=== PATIENT | male | born 1970 | race Caucasian/White ===

== ENCOUNTER 2021-01-30 09:28 | Observation (INO) | payer BC, SELFPAY ==
[2021-01-30] VITALS (19 sets, daily range): BP systolic 128–154; BP diastolic 84–112; PULSE 77–96; RESP 11–24; TEMP 36.2–37.2; O2SAT 95–98; BMI 40.4
--- NOTE | ~2021-01-30 | XR_ITS ---
EXAMINATION: XR chest 2V DATE: 01/30/2021 10:27 INDICATION: Left chest pressure. TECHNIQUE: Frontal and lateral views of the chest were obtained. COMPARISON: None. FINDINGS: There is mild atelectasis in left lower lung zone. No pleural effusion or pneumothorax. The heart size is normal. IMPRESSION: 1. Mild atelectasis in left lower lung zone. Reviewed, dictated and finalized at location B.
--- NOTE | ~2021-01-30 | NM_ITS ---
EXAMINATION: NM jacqui stress w perfusion DATE: 01/31/2021 12:53 INDICATION: Unstable angina. TECHNIQUE: Rest images were obtained following intravenous administration of 9.7 mCi Tc99m tetrofosmi n (Myoview). The patient was infused intravenously with Lexiscan (regadenoson). Then, 29.8 mCi Tc99m tetrofosmin (Myoview) was administered intravenously, and stress images were obtained. Data was recon structed into short axis and horizontal and vertical long axis SPECT images. Gated SPECT images were also obtained. COMPARISON: None. FINDINGS: There is no definite reversible or fixed perfusion abnormality to suggest ischemia or infar ction. There is no segmental wall motion abnormality. Left ventricular ejection fraction measures 5 9%. IMPRESSION: 1. No definite ischemia or infarct. 2. Normal left ventricular ejection fraction measuring 59%. Reviewed, dictated and finalized at location B.
--- NOTE | 2021-01-30 09:33 | ECG_ITS ---
Measurements Intervals [place] Rate: 93 P: 68 [place]: 168 QRS: -10 QRSD: 130 T: 30 QT: 335 QTc: 418 Interpretive Statements SINUS RHYTHM INCOMPLETE RIGHT BUNDLE BRANCH BLOCK BASELINE ARTIFACT- I, II, III, AVR, AVL, AVF, V1-V6 BORDERLINE ECG Electronically Signed On 01-30-2021 9:48:18 CDT by Willy Garcia D.O.
[2021-01-30] MEDS: ASPIRIN 81 MG CHEWABLE TABLET 324 MG PO (09:49)
[2021-01-30 09:52] LABS: Basophils Percent Auto 0.6 % (0.2-1.2); Eosinophils Absolute Auto 0.1 K/mm3 (0-0.3); Eosinophils Percent Auto 2.1 % (0-4.4); Hematocrit 42.3 % (42.0-52.0); Hemoglobin 14.3 g/dL (14.0-18.0); Immature Granulocyte Absolute 0.04 K/mm3 (0.00-0.031); Immature Granulocyte Percent A 0.6 % (0-0.5); Lymphocytes Absolute Auto 1.91 K/mm3 (0.9-3.2); Lymphocytes Percent Auto 28.1 % (18.3-44.2); Mean Corpuscular HGB Conc 33.8 g/dl (32-36); Mean Corpuscular Hemoglobin 30.8 pg (26-34); Mean Corpuscular Volume 91.2 fl (80-100); Mean Platelet Volume 11.1 fl (7.4-10.4); Monocytes Absolute Auto 0.6 K/mm3 (0.1-0.6); Monocytes Percent Auto 8.2 % (2.6-8.5); Neutrophils Absolute Auto 4.1 K/mm3 (1.3-6.7); Neutrophils Percent Auto 60.4 % (45.5-73.1); Platelet Count Result 214 k/mm3 (150-375); Red Blood Count 4.64 M/mm3 (4.6-6.20); Red Cell Distribution Width 12.5 % (11.5-14.5); White Blood Count 6.8 K/mm3 (4.5-10.0)
--- NOTE | 2021-01-30 09:52 | ED.CHESTPAIN ---
HPI - Chest Pain General Chief Complaint: Chest Pain Stated Complaint: chest pain Time Seen by Provider: 01/30/21 09:52 Source: patient and family Mode of arrival: ambulatory Limitations: no limitations History of Present Illness HPI narrative: Patient is a 50-year-old male who presents for evaluation of intermittent chest pain. At the time of assessment, patient is chest pain-free. Patient states that over the past 72 hours he has had increased chest pain as well as shortness of breath and diaphoresis with exertion. Patient states he initially attributed his pain to acid reflux as he has been taking [id number] medication for chest pain with a burning sensation. Patient states that at times the pain does radiate to his left shoulder. Patient denies fever or chills. He is vaccinated for Covid. No history of Covid. He is ambulatory and has no history of coagulopathy or recent surgeries. 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 Patient has not been seen by primary care provider in numerous years. He has never been diagnosed with hypertension or hyperlipidemia, but states he often eats at [employer] on a daily basis and his blood pressure is elevated here. He does not smoke. His father had a myocardial infarction at a young age. Related Data Allergies Allergy/AdvReac Type Severity Reaction Status Date / Time No Known Allergies Allergy Mild Verified 01/30/21 09:53 Review of Systems Review of Systems: CONSTITUTIONAL: Denies fever, chills, or sweats. EYES: Denies visual changes, redness, or discharge. ENT: Denies rhinorrhea, congestion, sore throat, or otalgia. CARDIOVASCULAR: Denies current chest pain, palpitations, or edema. RESPIRATORY: Denies cough or dyspnea. GASTROINTESTINAL: Denies abdominal pain, nausea, vomiting, or diarrhea. GENITOURINARY: Denies dysuria or hematuria. SKIN: Denies rash or itching. MUSCULOSKELETAL: Denies back pain, joint pain, or myalgia. NEUROLOGIC: Denies headache, numbness, or weakness. [facility] Past Medical History Medical History Depression Morbid obesity with BMI of 40.0-44.9, adult Family History Family History Father Family history of cardiovascular disease Social History Social History Smoking status: Never smoker Alcohol intake: current Gender identity (if verbalized by the patient): Male Exam Narrative: GENERAL: Awake, alert, conversant HEAD: Normocephalic, atraumatic. EYES: PERRLA and EOMI. ENT: Nares clear, no rhinorrhea or epistaxis. Mucous membranes moist. NECK: Supple. CHEST: No respiratory distress, breathing even and non labored HEART: Regular rate, sinus rhythm ABDOMEN:Non distended, non tender EXTREMITIES: Normal range of motion. No edema. SKIN: Warm, dry, no rash. NEURO:No focal deficits. Alert and oriented x3 Course Vital Signs Vital signs: Vital Signs Temperature 37.2 C 01/30/21 09:33 Pulse Rate 87 01/30/21 09:33 Respiratory Rate 20 01/30/21 09:33 Blood Pressure 154/112 H 01/30/21 09:33 Pulse Oximetry 98 01/30/21 09:33 Temperature 37.2 C 01/30/21 09:33 Pulse Rate 85 01/30/21 10:36 Respiratory Rate 16 01/30/21 10:36 Blood Pressure 134/87 01/30/21 10:36 Pulse Oximetry 97 01/30/21 10:36 MDM - Chest Pain MDM Narrative Medical decision making narrative: Patient presenting for evaluation of chest pain that is resolved at the time of assessment. Patient with some high risk features including nausea, diaphoresis and shortness of breath associated with the pain. All this is resolved at the time of my assessment. Is mildly hypertensive. No reproducible pain on exam. Patient given aspirin in the ER. Laboratory results are reassuring. Troponin is not
[2021-01-30 10:08] LABS: INR 0.8; Prothrombin Time 11.4 Seconds (11.1-14.7)
[2021-01-30 10:09] LABS: Partial Thromboplastin Time 27.7 SECONDS (22.3-36.8)
[2021-01-30 10:32] LABS: Anion Gap 6 mmol/L (8-16); Blood Urea Nitrogen 15 mg/dL (9-20); Carbon Dioxide 26 mmol/L (22-30); Chloride 107 mmol/L (98-107); Estimated Glomerular Filt Rate > 60; Glucose 100 mg/dL (65-110); Potassium 4.4 mmol/L (3.4-5.0); Sodium 139 mmol/L (137-145)
[2021-01-30 10:43] LABS: Troponin I < 0.012 ng/mL (0.000-0.034)
[2021-01-30 12:28] LABS: Cholesterol 245 mg/dL (0-200); HDL Direct 32 mg/dL; Triglycerides 250 mg/dL (<150)
[2021-01-30 12:39] LABS: LDL Cholesterol Direct 151 mg/dL
--- NOTE | 2021-01-30 12:50 | PM.IMHP ---
H&P: HPI History of Present Illness Date/Time: 01/30/21 12:50 Chief Complaint: Chest discomfort Narrative: Mr. Reji Francis is a 50-year-old male who has been previously healthy admitted to the emergency room today for evaluation of chest discomfort. Mr. 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 He has become worn out and tired. He has had heartburn for his entire life but it has increased in the last few days. This comes and goes, primarily at work but sometimes at home, not particularly exertional. This morning he had some around 630 and took 2 Tums which helped and went to work. Around 830 he had a more intense episode of chest left-sided chest tightness associated with diaphoresis and dizziness. There is no shortness of breath. He came to the emergency room and it gradually resolved on its own. He has been pain-free since admission. His 1st troponin was negative. There is no history of any hypertension or diabetes. Cholesterol status is unknown. He is a nonsmoker. His father had CAD nd stent in his 60s. 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 Used to see Dr. Ibarra, now sees his PA. Review of Systems Constitutional: Constitutional: Reports difficulty sleeping (Has difficulty sleeping when he is not in his own bed.) and Reports fatigue Eyes: Eyes: Reports blurry vision (Had double vision for while after his aneurysm surgery) ENT: Denies epistaxis and Denies nasal congestion Cardiovascular: Cardiovascular: Reports chest pain, Reports diaphoresis, Denies pedal edema, Denies leg edema and Reports lightheadedness Respiratory: Respiratory: Denies dyspnea and Denies dyspnea on exertion Gastrointestinal: Gastrointestinal: Denies abdominal pain and Reports heartburn (Heartburn his entire life) Genitourinary: Genitourinary: Denies hematuria and Denies dysuria Musculoskeletal: Musculoskeletal: 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) and Reports stiffness Integumentary/Breasts: Skin/Breast: Denies rash Neurologic: Denies confusion Psychiatric: Psychiatric: Reports anxiety, Denies behavioral changes and Reports depression PMFSH Past Medical History Medical History (Updated 01/30/21 @ 13:17 by Tg Browne MD) Anxiety Depression Diverticulitis Morbid obesity with BMI of 40.0-44.9, adult Surgical History Surgical History (Updated 01/30/21 @ 13:18 by Tg Browne MD) History of carpal tunnel surgery of right wrist S/P cerebral aneurysm repair Clipped when he was 21 years old Family History Family History (Updated 01/30/21 @ 13:19 by Tg Browne MD) Father Heart disease CAD, coronary stent when he was in his 60s Mother Liver cancer Sibling Diabetes mellitus Social History Social History (Updated 01/30/21 @ 13:20 by Tg Browne MD) Social History: twice, 3 children, 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 Smoking status: Never smoker Alcohol intake: current Alcohol use details: Social drinking, twice weekly Substance use: never Substance use type: does not use Gender identity (if verbalized by the patient): Male Spiritual care concerns: No Meds Home Medications and Allergies Home Medications Medication Instructions Recorded Confirmed Type venlafaxine 100 mg tablet 100 mg PO DAILY #90 tablet 06/20/20 06/20/20 Rx Allergies Allergy/AdvReac Type Severity Reaction Status Date / Time No Known Allergies Allergy Mild Verified 01/30/21 09:53 Vital Signs Vital Signs - 24 hr 01/30/21 09:33 01/30/21 09:45 01/30/21 09:52 Temperature 98.9 F Pulse Rate 87 90 89 Respiratory Rate 20 16 Blood Pressure 154/112
--- NOTE | 2021-01-30 13:19 | ADMGEN ---
This patient, Nirmal Francis, was admitted to IMU Room 205-01. Patient/family oriented to hospital policies and general routines including ID bracelet, bed and alarms, visiting hours, pain management, procedures, bathroom and other care routines, personal items, smoking policy, room service/diet, and visiting hours. Information on how to activate the Rapid Response Team has been discussed. Patient/Family are encouraged to report perceived risks to care and to ask questions if they do not understand what they are told or what they should do.
[2021-01-30 13:39] LABS: Troponin I < 0.012 ng/mL (0.000-0.034)
[2021-01-30] MEDS: PANTOPRAZOLE 40 MG TABLET PO (15:28)
[2021-01-30 17:20] LABS: Troponin I < 0.012 ng/mL (0.000-0.034)
[2021-01-30] MEDS: ZOLPIDEM TARTRATE (*CRX) 5 MG TABLET PO (21:11)
[2021-01-30] MEDS: LORazepam (*CRX) 0.5 MG TABLET PO (21:11)
[2021-01-31] VITALS (9 sets, daily range): BP systolic 109–126; BP diastolic 64–76; PULSE 66–104; RESP 16–18; TEMP 36.3–36.4; O2SAT 95–98
--- NOTE | 2021-01-31 | EST_ITS ---
Patient Info Name: Nirmal Francis Age: 50 years : 1970 Gender: Male Ht: 70 in Wt: 282 lbs BSA: 2.57 m2 HR: 89 bpm BP: 127 / 86 mmHg Heart Rhythm: Sinus Rhythm Exam Date: 01/31/2021 11:44 AM Exam Location: [facility] Stress Patient Status: Inpatient Admit Date: 01/30/2021 Staff Ordering Physician: Tg Browne MD Attending Provider: Tg Browne MD Exercise Technologist: Akila Salinas CT Exercise Physician: Carlos Garcia MD Exam Type: CA stress jacqui w NM Study Info A regadenoson stress test was performed. Summary 1. No abnormal ST/T wave changes with Lexiscan. 2. No arrhythmias were observed during the examination. 3. Please correlate with nuclear medicine images, reported separately. 4. No chest discomfort with stress test. Protocol: Lexiscan Stress ECG Details Stage: REST Duration (min): 0 min : 53 sec HR (bpm): 88 SBP (mmHg): 127 DBP (mmHg): 86 Stage: REST Duration (min): 18 min : 15 sec HR (bpm): 93 SBP (mmHg): 127 DBP (mmHg): 86 Stage: STAGE 1 Duration (min): 0 min : 59 sec HR (bpm): 117 SBP (mmHg): 148 DBP (mmHg): 82 Stage: RECOVERY Duration (min): 1 min : 0 sec HR (bpm): 117 SBP (mmHg): 148 DBP (mmHg): 82 Stage: RECOVERY Duration (min): 2 min : 0 sec HR (bpm): 109 SBP (mmHg): 148 DBP (mmHg): 82 Stage: RECOVERY Duration (min): 3 min : 0 sec HR (bpm): 110 SBP (mmHg): 134 DBP (mmHg): 84 Stage: RECOVERY Duration (min): 4 min : 0 sec HR (bpm): 107 SBP (mmHg): 134 DBP (mmHg): 84 Stage: RECOVERY Duration (min): 5 min : 0 sec HR (bpm): 105 SBP (mmHg): 124 DBP (mmHg): 86 Stage: RECOVERY Duration (min): 5 min : 28 sec HR (bpm): 104 SBP (mmHg): 124 DBP (mmHg): 86 Rest HR: 93 bpm Peak HR: 121 bpm Rest Sys BP: 127 mmHg Peak Sys BP: 148 mmHg Max Pred HR: 170 bpm % Max Pred HR: 71 % Target HR: 145 bpm Max RPP: 17,908 bpm*mmHg BP Response: Normal blood pressure response Termination Reason: Completed protocol Cardiac Symptoms: None Total Time: 1 min : 0 sec Rest Hester BP: 86 mmHg Peak Hester BP: 82 mmHg Total Dose: 0.4 mg Resting ECG Right bundle branch block. Normal sinus rhythm. Stress ECG No abnormal ST/T wave changes with Lexiscan. Arrhythmias No arrhythmias were observed during the examination. Report Signatures
--- NOTE | 2021-01-31 14:53 | PM.DS ---
DS: Admitting Diagnosis Admitting Diagnosis chest pain DS: Discharge Diagnosis Discharge Diagnosis (1) Chest discomfort: Code(s): R07.89 - Other chest pain Status: Acute Assessment and Plan: Chest discomfort that comes and goes and is not exertional. Has been under a lot of stress at work over the past several weeks which he thinks may be contributing to his symptoms. He underwent a lexiscan stress test today which did not show any evidence of ischemia or infarct. EF 59%. Feeling well today, no chest pain. Stable for discharge home with follow up as an outpatient with Dr. Browne. DS: Summary Hospital Course Reason for hospitalization: Chest pain Hospital Course: Presented to the ED with complaints of chest discomfort. EKG did not have evidence of ischemia. Serial troponins negative. Underwent lexiscan stress test today which was negative. Placed on a statin as lipid panel drawn here showed elevated LDL, TC. No longer having chest pain. He will be discharged home today with outpatient follow up scheduled. Time Spent with Patient Time attestation: Total time spent providing and/or coordinating discharge services: Time spent: Greater than 30 minutes Exam Const: General: no acute distress and uncomfortable; No confusion Orientation/consciousness: No confusion Other: Patient appears a bit anxious and uncomfortable being here. Does not like to sit still he says. HENMT: General nose exam: no epistaxis Mouth: Yes moist mucous membranes Eyes: EOM: EOMs intact bilaterally Neck: Neck: supple and no JVD Thyroid: thyroid normal Carotids: no bruits Lymphatic: lymphadenopathy not noted Resp: Effort & Inspection: normal respiratory effort Auscultation: clear to auscultation bilaterally Cardio: Rate: regular rate Rhythm: regular rhythm Heart sounds: no gallops, no murmurs and no rubs GI: Inspection: non-distended Skin: General skin exam: normal color and no rashes or lesions noted Neuro: General: No confusion Cognition (Neuro): normal cognition Speech: normal speech Motor exam (neuro): Normal motor muscle tone present throughout Extrem: General: no edema and no pedal edema Psych: Mental Status: mental status grossly normal Affect: normal affect DS: Data Data Completed and Pending Labs on day of discharge: Labs from last 24 hours 01/30/21 16:32 Troponin I < 0.012 Lexiscan Stress Test FINDINGS: There is no definite reversible or fixed perfusion abnormality to suggest ischemia or infarction. There is no segmental wall motion abnormality. Left ventricular ejection fraction measures 59%. IMPRESSION: 1. No definite ischemia or infarct. 2. Normal left ventricular ejection fraction measuring 59%. 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
== END 2021-01-31 15:45 | disposition home or self-care (01) ==
LOC: ANHED 11:03 → ANHIMU 12:09
PROVIDERS: Admitting Provider Internal Medicine Cardiovascular Disease; Emergency Provider Emergency Medicine; Visit Provider Internal Medicine Cardiovascular Disease
DX: R07.89 Other chest pain (principal); F41.8 Other specified anxiety disorders; E66.01 Morbid (severe) obesity due to excess calories; Z68.41 Body mass index [BMI] 40.0-44.9, adult
CPT/HCPCS: 36415; 71046; 78452; 80048; 80061; 84484; 85025; 85610; 85730; 93005; 93017; 99285; A9270; A9502; G0378; J2785

== ENCOUNTER 2021-04-30 10:05 | Emergency (ER) | payer BC, SELFPAY ==
--- NOTE | ~2021-04-30 | XR_ITS ---
EXAMINATION: XR elbow LT min 3V DATE: 04/30/2021 11:03 INDICATION: Left elbow pain. TECHNIQUE: 4 views of left elbow were obtained. COMPARISON: None. FINDINGS: Bone alignment is normal. No fracture. Joint spaces are well maintained. There is an enthes ophyte at olecranon. There is no elbow joint effusion. IMPRESSION: 1. No fracture. Reviewed, dictated and finalized at location A. WEIGHER HELPER IMPRESSION: 1. No fracture.
[2021-04-30 10:15] VITALS: BP 121/78; PULSE 91; RESP 16; TEMP 36.4; O2SAT 99
--- NOTE | 2021-04-30 10:42 | ED.UPPEXIN ---
HPI - Extremity Injury (Upper) General Chief Complaint: Extremity Injury, Upper Stated Complaint: left elbow pain Time Seen by Provider: 04/30/21 10:42 Source: patient Mode of arrival: ambulatory Limitations: no limitations History of Present Illness HPI narrative: Nirmal Francis is a 50 yo male with a PMH of high cholesterol, ADHD, depression [facility] of left arm weakness with lifting and pain when he tries to sleep. Originally hurt at work about 2 weeks ago; does not want to go through Workmen's Comp. Related Data Allergies Allergy/AdvReac Type Severity Reaction Status Date / Time No Known Allergies Allergy Mild Verified 04/30/21 10:22 Review of Systems Review of Systems: CONSTITUTIONAL: Denies fever, chills, sweats. EYES: Denies visual changes, redness, discharge. ENT: Denies rhinorrhea, congestion, sore throat, otalgia. CARDIOVASCULAR: Denies chest pain, palpitations, edema. RESPIRATORY: Denies dyspnea, wheezing, cough GASTROINTESTINAL: Denies abdominal pain, nausea, vomiting, diarrhea. GENITOURINARY: Denies dysuria, hematuria, abnormal discharge SKIN: Denies rash or itching. NEUROLOGIC: Denies numbness, or focal weakness. PSYCHIATRIC: Denies anxiety or depression. Left elbow pain, has weakness with lifting and certain movements PMFSH Past Medical History Medical History ADD (attention deficit disorder) Anxiety Arthritis Depression Diverticulitis Hyperlipidemia Migraine Morbid obesity with BMI of 40.0-44.9, adult MARTY (obstructive sleep apnea) Not currently on CPAP Surgical History Surgical History History of carpal tunnel surgery of right wrist S/P cerebral aneurysm repair Clipped when he was 21 years old Family History Family History Father Heart disease CAD, coronary stent when he was in his 60s Mother Liver cancer Sibling Diabetes mellitus Social History Social History Social History: twice, 3 children, 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 Smoking status: Never smoker Alcohol intake: current Alcohol use details: Social drinking, twice weekly Substance use: never Substance use type: does not use Gender identity (if verbalized by the patient): Male Spiritual care concerns: No Comments At time of signature, I agree with nursing past medical, surgical, social and family history. There is no relevant family history pertinent to the presenting complaint. Exam Narrative: GENERAL: This is a well-nourished, well-developed patient, in mild distress. HEAD: normocephalic, atraumatic. EYES: Sclera clear/white. Vision is grossly intact. EARS: External ears normal, Hearing grossly intact. NOSE: External nose normal without nasal discharge, nares without redness, no rhinorrhea. THROAT: Mucous membranes moist, NECK: Neck supple, non-tender CARDIOVASCULAR: Regular rate and rhythm without murmurs, gallops, or rubs. RESPIRATORY: Clear to auscultation. Breath sounds equal bilaterally. No wheezes, rales, or rhonchi. GASTROINTESTINAL: Abdomen soft, SKIN: warm, intact with no suspicious lesions or rash, good texture and turgor. NEURO: awake, alert, and oriented to person, place and time. There were no obvious focal neurologic abnormalities. Steady gait EXTREMITIES: range of motion was somewhat restricted on the left, has pain in left elbow when he moves arm posterior BACK: Nontender without deformity Course Course Emergency Course: Left elbow pain and weakness when lifting x2 weeks X-ray negative for strain fracture; alignment is normal no effusion Started on muscle relaxant and tramadol; given a few days off to rest arm Vital Signs Vital signs:
== END 2021-04-30 11:40 | disposition home or self-care (01) ==
PROVIDERS: Emergency Provider Nurse Practitioner
DX: S44.02XA Injury of ulnar nerve at upper arm level, left arm, initial encounter (principal); X58.XXXA Exposure to other specified factors, initial encounter; Y99.0 Civilian activity done for income or pay; E78.00 Pure hypercholesterolemia, unspecified; F90.9 Attention-deficit hyperactivity disorder, unspecified type; F32.A Depression, unspecified; F41.9 Anxiety disorder, unspecified; M19.90 Unspecified osteoarthritis, unspecified site; E78.5 Hyperlipidemia, unspecified; E66.01 Morbid (severe) obesity due to excess calories; Z68.37 Body mass index [BMI] 37.0-37.9, adult; G47.33 Obstructive sleep apnea (adult) (pediatric)
CPT/HCPCS: 73080; 99213; G0463

== ENCOUNTER 2021-11-24 11:17 | Emergency (ER) | payer BC, SELFPAY ==
--- NOTE | ~2021-11-24 | XR_ITS ---
EXAMINATION: XR lumbar spine 2-3V DATE: 11/24/2021 11:54 INDICATION: Low back pain. Fall. TECHNIQUE: 3 views of lumbar spine were obtained. COMPARISON: None. FINDINGS: Bone alignment is normal. Vertebral body heights are normal. There is mildly decreased disc height at L4-L5 and moderately decreased disc height at L5-S1. There is multilevel mild facet joint osteoarthritis. IMPRESSION: 1. Moderate lower lumbar spondylosis. Reviewed, dictated and finalized at location B.
--- NOTE | ~2021-11-24 | XR_ITS ---
EXAMINATION: XR hip RT min 2V DATE: 11/24/2021 11:54 INDICATION: Right hip pain. Fall. TECHNIQUE: 2 views of right hip were obtained. COMPARISON: None. FINDINGS: Bone alignment is normal. No fracture. There is mild right hip osteoarthritis. IMPRESSION: 1. Mild right hip osteoarthritis. Reviewed, dictated and finalized at location B.
[2021-11-24 11:26] VITALS: BP 134/82; PULSE 94; RESP 18; TEMP 36.7; O2SAT 100
--- NOTE | 2021-11-24 11:34 | ED.BACK ---
HPI - Back Pain/Injury General Chief Complaint: Back Pain/Injury Stated Complaint: Back Pain Source: patient Mode of arrival: ambulatory Limitations: no limitations History of Present Illness HPI Narrative: 50-year-old male presented for complaint of right hip and right low back pain after fall today. 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 Denies hitting his head or loss of consciousness. Rates his pain 8 out of 10. Took a Tylenol prior to arrival. He states his hips feel out of place. Patient is ambulatory, denies numbness, tingling, or weakness of the lower extremities. Related Data Allergies Allergy/AdvReac Type Severity Reaction Status Date / Time No Known Allergies Allergy Mild Verified 11/24/21 11:22 Review of Systems Review of Systems: CONSTITUTIONAL: Denies body aches, fever, chills CARDIOVASCULAR: Denies chest pain, palpitations, or edema. RESPIRATORY: Denies cough or dyspnea. GASTROINTESTINAL: Denies abdominal pain, nausea, vomiting, or diarrhea. SKIN: Denies rash, itching, or wounds. MUSCULOSKELETAL: reports back pain, hip pain NEUROLOGIC: Denies headache, numbness, tingling, or weakness. PSYCH: Denies depression or anxiety. All systems reviewed & are unremarkable except as noted in HPI and below PMFSH Past Medical History Medical History ADD (attention deficit disorder) Anxiety Arthritis Bilateral hand numbness Depression Diverticulitis Hyperlipidemia Insomnia Migraine Morbid obesity with BMI of 40.0-44.9, adult MARTY (obstructive sleep apnea) Not currently on CPAP Surgical History Surgical History History of carpal tunnel surgery of right wrist S/P cerebral aneurysm repair Clipped when he was 21 years old Family History Family History Father Heart disease CAD, coronary stent when he was in his 60s Mother Liver cancer Sibling Diabetes mellitus Social History Social History Social History: twice, 3 children, 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 Alcohol intake: current Alcohol use details: Social drinking, twice weekly Substance use: never Substance use type: does not use Gender identity (if verbalized by the patient): Male Spiritual care concerns: No Comments At time of signature, I have reviewed and agree with nursing past medical, surgical, social and family history unless otherwise noted. Please see nursing chart for further information. There is no relevant family history pertinent to the presenting complaint Exam Narrative: GENERAL: appears in pain, in no acute distress. HEAD: Normocephalic, atraumatic. EYES: EOMI conjunctivae clear NECK: Supple. CHEST: Speaks in full sentences. No respiratory distress. HEART: Regular rate and rhythm. Normal and equal peripheral pulses. EXTREMITIES: BLEs normal strength and sensation, normal range of motion. No vertebral point tenderness. Right hip laterally has tenderness with palpation and right lower back aboove ilium with tenderness to palpation. No open wounds, skin tenting, or obvious deformity; alignment normal, pulse palpable and equal bilaterally, skin warm, dry, pink. Capillary refill less than 3 seconds. Gait steady. SKIN: Warm, dry, no rash. NEURO: Alert and oriented x3. PSYCH: Flat affect Course Course Emergency Course: Patient is aware of diagnosis, understands and agrees to treatment plan. Anticipatory guidance given. Patient agrees to follow-up as directed and is aware of reasons to seek care at the emergency department. Portions of this record may have been created with voice recognition software
== END 2021-11-24 12:15 | disposition home or self-care (01) ==
PROVIDERS: Emergency Provider Nurse Practitioner Family
DX: M54.50 Low back pain, unspecified (principal); M25.551 Pain in right hip; M47.816 Spondylosis without myelopathy or radiculopathy, lumbar region; M19.90 Unspecified osteoarthritis, unspecified site; E78.5 Hyperlipidemia, unspecified; E66.01 Morbid (severe) obesity due to excess calories; Z68.36 Body mass index [BMI] 36.0-36.9, adult; F41.9 Anxiety disorder, unspecified; F32.A Depression, unspecified
CPT/HCPCS: 72100; 73502; 99214; G0463

== ENCOUNTER 2022-02-13 09:34 | Emergency (ER) | payer BC, SELFPAY ==
[2022-02-13 09:43] VITALS: BP 120/79; PULSE 91; RESP 18; TEMP 36.6; O2SAT 99
--- NOTE | 2022-02-13 09:44 | ED.BACK ---
HPI - Back Pain/Injury General Chief Complaint: Back Pain/Injury Stated Complaint: back pain Time Seen by Provider: 02/13/22 09:44 Source: patient and RN notes reviewed Mode of arrival: ambulatory Limitations: no limitations History of Present Illness HPI Narrative: 51-year-old male presents to the [facility] with a flare of his chronic back pain and left elbow pain. Requesting a work note for 2 days. Patient denies any loss retention of bowel or bladder. No numbness or tingling in extremities. Walks with a normal gait. 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 States that he tried calling into work and was told he needed a doctor's note Denies chest pain, abdominal pain. Denies any fevers. Related Data Allergies Allergy/AdvReac Type Severity Reaction Status Date / Time No Known Allergies Allergy Mild Verified 02/13/22 09:42 Review of Systems Review of Systems: All systems reviewed & are unremarkable except as noted in HPI and below Constitutional: Constitutional: Reports no additional constitutional complaints, Denies chills and Denies fever(s) Eyes: Eyes: Reports no additional eye complaints ENT: Reports system reviewed and no additional complaints, except as documented Cardiovascular: Cardiovascular: Reports no additional cardiovascular complaints Respiratory: Respiratory: Reports no additional respiratory complaints Gastrointestinal: Gastrointestinal: Reports no additional gastrointestinal complaints Musculoskeletal: Musculoskeletal: Reports as per HPI and Reports back pain Integumentary/Breasts: Skin/Breast: Reports system reviewed and no additional complaints, except as docu Neurologic: Reports system reviewed and no additional complaints, except as documented Psychiatric: Psychiatric: Reports no additional psychiatric complaints Allergic/Immunologic: Allergic/Immunologic: Reports no additional allergic/immunologic complaints [facility] Past Medical History Medical History ADD (attention deficit disorder) Anxiety Arthritis Bilateral hand numbness Depression Diverticulitis Hyperlipidemia Insomnia Migraine Morbid obesity with BMI of 40.0-44.9, adult MARTY (obstructive sleep apnea) Not currently on CPAP Surgical History Surgical History History of carpal tunnel surgery of right wrist S/P cerebral aneurysm repair Clipped when he was 21 years old Family History Family History Father Heart disease CAD, coronary stent when he was in his 60s Mother Liver cancer Sibling Diabetes mellitus Social History Social History Social History: Caffeine-daily twice, 3 children, 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 Smoking status: Never smoker Alcohol intake: current Alcohol use details: Social drinking, twice weekly beer Substance use: never Substance use type: does not use Gender identity (if verbalized by the patient): Male Spiritual care concerns: No Comments At the time of my signature, I reviewed and agree with the nursing past medical, surgical, social, and family history. There is no relevant family history pertinent to the patient complaint. Exam Const: General: healthy appearing, no acute distress and alert Nutritional Appearance: well nourished Orientation/consciousness: patient oriented x3 Limitations: no limitations HENMT: Head: normal to inspection Ears: external ears normal Eyes: General: appearance normal, both eyes and all related structures Pupils: Equal, round and reactive pupils present Neck: Neck: normal visual inspection, no lymphadenopathy and no meningeal signs Chest: Chest palpation & inspection: normal inspection of the chest Res
== END 2022-02-13 10:07 | disposition home or self-care (01) ==
PROVIDERS: Emergency Provider Nurse Practitioner; PCP Nurse Practitioner Family
DX: G89.29 Other chronic pain (principal); M54.50 Low back pain, unspecified; M19.90 Unspecified osteoarthritis, unspecified site; E78.5 Hyperlipidemia, unspecified; E66.01 Morbid (severe) obesity due to excess calories; Z68.35 Body mass index [BMI] 35.0-35.9, adult; G47.33 Obstructive sleep apnea (adult) (pediatric); F98.8 Other specified behavioral and emotional disorders with onset usually occurring in childhood and adolescence; F41.9 Anxiety disorder, unspecified; F32.A Depression, unspecified
CPT/HCPCS: 99212; G0463

== ENCOUNTER 2022-10-28 08:07 | Outpatient (CLI) | payer BC, SELFPAY ==
[2022-10-28 20:02] LABS: Basophils Absolute Auto 0.1 K/mm3 (0.0-0.1); Basophils Percent Auto 0.8 % (0.2-1.2); Eosinophils Absolute Auto 0.2 K/mm3 (0-0.3); Eosinophils Percent Auto 3.1 % (0-4.4); Hematocrit 42.6 % (42.0-52.0); Hemoglobin 13.9 g/dL (14.0-18.0); Immature Granulocyte Absolute 0.02 K/mm3 (0.00-0.031); Immature Granulocyte Percent A 0.3 % (0-0.5); Lymphocytes Absolute Auto 1.75 K/mm3 (0.9-3.2); Lymphocytes Percent Auto 27.6 % (18.3-44.2); Mean Corpuscular HGB Conc 32.6 g/dl (32-36); Mean Corpuscular Hemoglobin 30.1 pg (26-34); Mean Corpuscular Volume 92.2 fl (80-100); Mean Platelet Volume 10.9 fl (7.4-10.4); Monocytes Absolute Auto 0.5 K/mm3 (0.1-0.6); Monocytes Percent Auto 8.5 % (2.6-8.5); Neutrophils Absolute Auto 3.8 K/mm3 (1.3-6.7); Neutrophils Percent Auto 59.7 % (45.5-73.1); Platelet Count Result 209 k/mm3 (150-375); Red Blood Count 4.62 M/mm3 (4.6-6.20); Red Cell Distribution Width 12.6 % (11.5-14.5); White Blood Count 6.4 K/mm3 (4.5-10.0)
[2022-10-28 20:38] LABS: Alanine Aminotransferase 26 U/L (6-50); Albumin Level 4.4 g/dL (3.5-5.1); Alkaline Phosphatase 67 U/L (38-126); Anion Gap 6 mmol/L (8-16); Aspartate Amino Transferase 35 U/L (17-59); Bilirubin,Total 0.5 mg/dL (0.2-1.3); Blood Urea Nitrogen 17 mg/dL (9-20); Calcium 9.2 mg/dL (8.4-10.2); Carbon Dioxide 32 mmol/L (22-30); Chloride 102 mmol/L (98-107); Cholesterol 178 mg/dL (0-200); Estimated Glomerular Filt Rate > 60; Glucose 77 mg/dL (65-110); HDL Direct 44 mg/dL; Potassium 4.8 mmol/L (3.4-5.0); Sodium 140 mmol/L (137-145); Triglycerides 114 mg/dL (<150)
[2022-10-28 20:49] LABS: LDL Cholesterol Direct 111 mg/dL
[2022-10-28 21:06] LABS: Prostate Specific Antigen 1.3 ng/mL (< OR = 4.0)
[2022-10-28 21:26] LABS: Hemoglobin A1C 5.3 % (<5.7)
[2022-11-02 10:42] LABS: Testosterone Total 589 ng/dL (250-1100)
== END 2022-10-28 08:08 | disposition home or self-care (01) ==
LOC: ANHGOSHLAB 08:08
PROVIDERS: PCP Nurse Practitioner Family; Visit Provider Nurse Practitioner Family
DX: E78.5 Hyperlipidemia, unspecified (principal); I10 Essential (primary) hypertension; R53.83 Other fatigue; Z12.5 Encounter for screening for malignant neoplasm of prostate; R73.01 Impaired fasting glucose
CPT/HCPCS: 36415; 80053; 80061; 83036; 84153; 84403; 84443; 85025; G0103

== ENCOUNTER 2022-11-16 10:04 | Emergency (ER) | payer BC, SELFPAY ==
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
[2022-11-16 10:22] VITALS: BP 140/98; PULSE 91; RESP 12; TEMP 36.8; O2SAT 100
[2022-11-16 10:23] VITALS: BP 140/98; PULSE 91; RESP 12; TEMP 36.8; O2SAT 100
== END 2022-11-16 10:36 | disposition home or self-care (01) ==
PROVIDERS: Emergency Provider Nurse Practitioner Family
DX: L91.8 Other hypertrophic disorders of the skin (principal); M19.90 Unspecified osteoarthritis, unspecified site; E78.5 Hyperlipidemia, unspecified; E66.01 Morbid (severe) obesity due to excess calories; Z68.38 Body mass index [BMI] 38.0-38.9, adult; F41.9 Anxiety disorder, unspecified; F32.A Depression, unspecified
CPT/HCPCS: 99211; G0463

== ENCOUNTER 2022-11-20 08:38 | Emergency (ER) | payer OTHER, BC, SELFPAY ==
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
[2022-11-20 08:53] VITALS: BP 144/93; PULSE 89; RESP 12; TEMP 36.9; O2SAT 100
== END 2022-11-20 09:40 | disposition home or self-care (01) ==
PROVIDERS: Emergency Provider Nurse Practitioner Family; PCP Family Medicine
DX: S66.911A Strain of unspecified muscle, fascia and tendon at wrist and hand level, right hand, initial encounter (principal); S86.911A Strain of unspecified muscle(s) and tendon(s) at lower leg level, right leg, initial encounter; S46.911A Strain of unspecified muscle, fascia and tendon at shoulder and upper arm level, right arm, initial encounter; V49.50XA Passenger injured in collision with unspecified motor vehicles in traffic accident, initial encounter; M19.90 Unspecified osteoarthritis, unspecified site; E78.5 Hyperlipidemia, unspecified; E66.01 Morbid (severe) obesity due to excess calories; Z68.37 Body mass index [BMI] 37.0-37.9, adult; F41.9 Anxiety disorder, unspecified; F32.A Depression, unspecified
CPT/HCPCS: 73110; 73564; 99214; G0463

== ENCOUNTER 2022-11-24 09:00 | Outpatient (NON) | payer BC, SELFPAY | END 2022-11-24 09:01 | disposition home or self-care (01) | LOC: HOME HLTH 11-25 15:21 | PROVIDERS: PCP Family Medicine; Visit Provider Nurse Practitioner Family | DX: L82.1 Other seborrheic keratosis (principal) | CPT/HCPCS: 88305 ==

== ENCOUNTER 2023-12-02 08:06 | Emergency (ER) | payer BC, SELFPAY ==
--- NOTE | 2023-12-02 08:12 | ED.GENADULT ---
HPI - General Adult General Chief complaint: Ear <Blanca Tony APRN - Last Filed: 12/02/23 11:47> Stated complaint: left leg issue,right ear numb wasp sting in ear <Blanca Tony APRN - Last Filed: 12/02/23 11:47> Time Seen by Provider: 12/02/23 08:23 <Blanca Tony APRN - Last Filed: 12/02/23 11:47> Source: patient, RN notes reviewed and old records reviewed <Cathy Ordaz HOTEL RESERVATION AGENT - Last Filed: 12/02/23 13:18> Mode of arrival: ambulatory <Cathy Ordaz APRN - Last Filed: 12/02/23 13:18> Limitations: no limitations <Cathy Ordaz APRN - Last Filed: 12/02/23 13:18> History of Present Illness HPI narrative: 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 He is also complaining of skin changes to the left summers, denies any injury or trauma to the site. Reports that he had similar episode approximately 1 year ago, resolved without treatment within 2 weeks. He denies any fever, chills, sweats. Denies any warmth or redness to either site. Has not taken any medications for either complaint. He is requesting a work note, he reports that he believes the skin changes in his leg will resolve more quickly if he is not walking 10 miles per day as required by his job. <Blanca Tony APRN - Last Filed: 12/02/23 11:47> Related Data Allergies/adverse reactions: Allergies Allergy/AdvReac Type Severity Reaction Status Date / Time No Known Allergies Allergy Mild Verified 12/02/23 08:22 <Blanca Tony APRN - Last Filed: 12/02/23 11:47> Review of Systems Review of Systems: <Blanca Tony APRN - Last Filed: 12/02/23 11:47> Constitutional: Constitutional: Reports no additional constitutional complaints <Blanca Tony APRN - Last Filed: 12/02/23 11:47> ENT: Reports system reviewed and no additional complaints, except as documented <Blanca Tony APRN - Last Filed: 12/02/23 11:47> Cardiovascular: Cardiovascular: Reports no additional cardiovascular complaints <Blanca Tony APRN - Last Filed: 12/02/23 11:47> Respiratory: Respiratory: Reports no additional respiratory complaints <Blanca Tony APRN - Last Filed: 12/02/23 11:47> Gastrointestinal: Gastrointestinal: Reports no additional gastrointestinal complaints <Blanca Tony APRN - Last Filed: 12/02/23 11:47> Integumentary/Breasts: Skin/Breast: Reports as per HPI <Blanca Tony APRN - Last Filed: 12/02/23 11:47> PMF Past Medical History Medical History: Medical History ADHD Bilateral hand numbness Depression with anxiety Diverticulitis (~01/2021) Erectile dysfunction History of colon polyps Hyperlipidemia Insomnia Morbid obesity with BMI of 40.0-44.9, adult AMRTY (obstructive sleep apnea) Not currently on CPAP Prediabetes <Blanca Tony APRN - Last Filed: 12/02/23 11:47> Surgical History Surgical History: Surgical History History of carpal tunnel surgery of right wrist (~2006) S/P cerebral aneurysm repair (~1997) Clipped when he was 21 years old <Blanca Tony APRN - Last Filed: 12/02/23 11:47> Family History Family History: Family History Father Heart disease CAD, coronary stent when he was in his 60s Mother Liver cancer Sibling Diabetes mellitus <Blanca Tony APRN - Last Filed: 12/02/23 11:47> Social History Social History: Social History Social History: Caffeine-daily twice, 3 children, 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 Smoking status: Never smoker Alcohol intake: current Alcohol use details: twice weekly beer Substance use: never Substance use type: devries
[2023-12-02 08:18] VITALS: BP 145/91; PULSE 91; RESP 16; TEMP 36.6; O2SAT 97
== END 2023-12-02 08:50 | disposition home or self-care (01) ==
PROVIDERS: Emergency Provider Nurse Practitioner Family; PCP Family Medicine
DX: L30.9 Dermatitis, unspecified (principal); E78.5 Hyperlipidemia, unspecified; E66.01 Morbid (severe) obesity due to excess calories; Z68.37 Body mass index [BMI] 37.0-37.9, adult; R73.03 Prediabetes; F90.9 Attention-deficit hyperactivity disorder, unspecified type; F41.8 Other specified anxiety disorders
CPT/HCPCS: 99211; G0463

== ENCOUNTER 2023-12-21 07:57 | Outpatient (CLI) | payer BC, SELFPAY ==
[2023-12-21 13:13] LABS: Hematocrit 41.6 % (42.0-52.0); Hemoglobin 13.7 g/dL (14.0-18.0); Mean Corpuscular HGB Conc 32.9 g/dl (32-36); Mean Corpuscular Hemoglobin 31.6 pg (26-34); Mean Corpuscular Volume 95.9 fl (80-100); Mean Platelet Volume 10.8 fl (7.4-10.4); Platelet Count Result 219 k/mm3 (150-375); Red Blood Count 4.34 M/mm3 (4.6-6.20); Red Cell Distribution Width 12.2 % (11.5-14.5)
[2023-12-21 13:20] LABS: Alanine Aminotransferase 17 U/L (6-50); Albumin Level 4.4 g/dL (3.5-5.1); Alkaline Phosphatase 54 U/L (38-126); Anion Gap 9 mmol/L (4-12); Aspartate Amino Transferase 37 U/L (17-59); Bilirubin,Total 0.8 mg/dL (0.2-1.3); Blood Urea Nitrogen 14 mg/dL (9-20); Carbon Dioxide 29 mmol/L (22-30); Chloride 100 mmol/L (98-107); Cholesterol 135 mg/dL (0-200); Estimated Glomerular Filt Rate > 60; Glucose 76 mg/dL (65-110); HDL Direct 41 mg/dL; Potassium 5.1 mmol/L (3.4-5.0); Sodium 138 mmol/L (137-145); Triglycerides 167 mg/dL (<150)
[2023-12-21 13:36] LABS: LDL Cholesterol Direct 73 mg/dL
[2023-12-22 18:32] LABS: Hemoglobin A1C 5.5 % (<5.7)
== END 2023-12-21 07:58 | disposition home or self-care (01) ==
LOC: ANHGOSHLAB 07:58
PROVIDERS: PCP Family Medicine; Visit Provider Family Medicine
DX: E66.9 Obesity, unspecified (principal); E78.5 Hyperlipidemia, unspecified; R73.03 Prediabetes; F90.9 Attention-deficit hyperactivity disorder, unspecified type; Z68.38 Body mass index [BMI] 38.0-38.9, adult
CPT/HCPCS: 36415; 80053; 80061; 83036; 84443; 85027

== ENCOUNTER 2024-01-17 12:01 | Outpatient (CLI) | payer BC, SELFPAY ==
--- NOTE | ~2024-01-17 | US_ITS ---
Right midline of the back scar area ultrasound. History: R22.2 - Localized swelling, mass and lump, trunk Technique: Evaluation of the area of concern was performed in real time. Findings/impression: Lipoma is seen measuring 2.4 x 2.2 x 1 cm. Reviewed, dictated and finalized at location A.
== END 2024-01-17 12:02 ==
LOC: GOSHIMG 12:02
PROVIDERS: PCP Family Medicine; Visit Provider Family Medicine
DX: R22.2 Localized swelling, mass and lump, trunk (principal)
CPT/HCPCS: 76604

== ENCOUNTER 2024-02-01 12:32 | Outpatient (CLI) | payer BC, SELFPAY ==
[2024-02-01 15:29] LABS: Hematocrit 41.9 % (42.0-52.0); Hemoglobin 13.7 g/dL (14.0-18.0); Mean Corpuscular HGB Conc 32.7 g/dl (32-36); Mean Corpuscular Hemoglobin 30.2 pg (26-34); Mean Corpuscular Volume 92.3 fl (80-100); Mean Platelet Volume 10.7 fl (7.4-10.4); Platelet Count Result 219 k/mm3 (150-375); Red Blood Count 4.54 M/mm3 (4.6-6.20); Red Cell Distribution Width 11.8 % (11.5-14.5); White Blood Count 6.7 K/mm3 (4.5-10.0)
[2024-02-01 16:12] LABS: Prostate Specific Antigen 0.9 ng/mL (< OR = 4.0)
== END 2024-02-01 12:33 | disposition home or self-care (01) ==
LOC: ANHGOSHLAB 12:34
PROVIDERS: PCP Family Medicine; Visit Provider Family Medicine
DX: R73.03 Prediabetes (principal); Z79.899 Other long term (current) drug therapy; Z12.5 Encounter for screening for malignant neoplasm of prostate
CPT/HCPCS: 36415; 84153; 85027; G0103

== ENCOUNTER 2024-02-08 14:38 | Outpatient (CLI) | payer BC, SELFPAY ==
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
== END 2024-02-08 14:39 ==
LOC: GOSHIMG 14:39
PROVIDERS: PCP Family Medicine; Visit Provider Family Medicine
DX: S22.32XA Fracture of one rib, left side, initial encounter for closed fracture (principal); W19.XXXA Unspecified fall, initial encounter
CPT/HCPCS: 71046; 71100

== ENCOUNTER 2024-03-20 11:31 | Outpatient (CLI) | payer BC, SELFPAY ==
[2024-03-20 11:55] LABS: Basophils Percent Auto 0.3 % (0.2-1.2); Eosinophils Absolute Auto 0.1 K/mm3 (0-0.3); Eosinophils Percent Auto 2.2 % (0-4.4); Hematocrit 41.6 % (42.0-52.0); Hemoglobin 13.9 g/dL (14.0-18.0); Immature Granulocyte Absolute 0.02 K/mm3 (0.00-0.031); Immature Granulocyte Percent A 0.3 % (0-0.5); Lymphocytes Absolute Auto 1.73 K/mm3 (0.9-3.2); Lymphocytes Percent Auto 26.8 % (18.3-44.2); Mean Corpuscular HGB Conc 33.4 g/dl (32-36); Mean Corpuscular Hemoglobin 30.8 pg (26-34); Mean Corpuscular Volume 92.2 fl (80-100); Mean Platelet Volume 9.8 fl (7.4-10.4); Monocytes Absolute Auto 0.5 K/mm3 (0.1-0.6); Monocytes Percent Auto 8.2 % (2.6-8.5); Neutrophils Percent Auto 62.2 % (45.5-73.1); Platelet Count Result 209 k/mm3 (150-375); Red Blood Count 4.51 M/mm3 (4.6-6.20); Red Cell Distribution Width 11.9 % (11.5-14.5); White Blood Count 6.5 K/mm3 (4.5-10.0)
[2024-03-20 13:30] LABS: Iron 110 ug/dL (49-181)
[2024-03-20 13:34] LABS: Alanine Aminotransferase 16 U/L (6-50); Albumin Level 4.4 g/dL (3.5-5.1); Alkaline Phosphatase 53 U/L (38-126); Anion Gap 6 mmol/L (4-12); Aspartate Amino Transferase 17 U/L (17-59); Bilirubin,Total 0.5 mg/dL (0.2-1.3); Blood Urea Nitrogen 15 mg/dL (9-20); Calcium 9.2 mg/dL (8.4-10.2); Carbon Dioxide 30 mmol/L (22-30); Chloride 101 mmol/L (98-107); Estimated Glomerular Filt Rate > 60; Glucose 106 mg/dL (65-110); Potassium 4.8 mmol/L (3.4-5.0); Sodium 137 mmol/L (137-145)
[2024-03-20 13:39] LABS: Percent Iron Saturation 35 % (20-50)
[2024-03-20 14:37] LABS: Folic Acid 10.3 ng/mL (2.76->20)
[2024-03-24 14:48] LABS: Soluble Transferrin Receptor 1.15 mg/L (0.76-1.76)
[2024-03-25 00:48] LABS: Methylmalonic Acid 144 nmol/L (55-335)
== END 2024-03-20 11:32 | disposition home or self-care (01) ==
LOC: ANHLAB 11:34
PROVIDERS: PCP Family Medicine; Visit Provider Internal Medicine Hematology & Oncology
DX: D64.9 Anemia, unspecified (principal)
CPT/HCPCS: 36415; 80053; 82607; 82728; 82746; 83540; 83550; 83921; 84238; 85025

== ENCOUNTER → 2024-03-27 10:05 | Outpatient (REF) | payer BC, SELFPAY | LOC: ANHLAB 10:05 | PROVIDERS: PCP Family Medicine; Visit Provider Plastic Surgery | DX: D17.1 Benign lipomatous neoplasm of skin and subcutaneous tissue of trunk (principal) | CPT/HCPCS: 88304 ==

== ENCOUNTER 2024-06-23 11:36 | Emergency (ER) | payer BC, SELFPAY ==
[2024-06-23 11:48] VITALS: BP 136/82; PULSE 95; RESP 16; TEMP 36.1; O2SAT 99
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
== END 2024-06-23 12:20 | disposition home or self-care (01) ==
PROVIDERS: Emergency Provider Nurse Practitioner Family; PCP Family Medicine
DX: M79.18 Myalgia, other site (principal); W00.0XXA Fall on same level due to ice and snow, initial encounter; Y99.0 Civilian activity done for income or pay
CPT/HCPCS: 99212; G0463

== ENCOUNTER 2024-08-14 08:14 | Outpatient (CLI) | payer BC, SELFPAY ==
[2024-08-14 14:01] LABS: Hematocrit 40.9 % (42.0-52.0); Hemoglobin 13.2 g/dL (14.0-18.0); Mean Corpuscular HGB Conc 32.3 g/dl (32-36); Mean Corpuscular Hemoglobin 30.9 pg (26-34); Mean Corpuscular Volume 95.8 fl (80-100); Mean Platelet Volume 10.6 fl (7.4-10.4); Platelet Count Result 210 k/mm3 (150-375); Red Blood Count 4.27 M/mm3 (4.6-6.20); Red Cell Distribution Width 12.1 % (11.5-14.5); White Blood Count 5.5 K/mm3 (4.5-10.0)
[2024-08-14 19:36] LABS: Alanine Aminotransferase 25 U/L (6-50); Albumin Level 4.3 g/dL (3.5-5.1); Alkaline Phosphatase 56 U/L (38-126); Anion Gap 7 mmol/L (4-12); Aspartate Amino Transferase 32 U/L (17-59); Bilirubin,Total 0.5 mg/dL (0.2-1.3); Blood Urea Nitrogen 17 mg/dL (9-20); Calcium 9.1 mg/dL (8.4-10.2); Carbon Dioxide 30 mmol/L (22-30); Chloride 102 mmol/L (98-107); Cholesterol 130 mg/dL (0-200); Estimated Glomerular Filt Rate > 60; Glucose 84 mg/dL (65-110); HDL Direct 53 mg/dL; Potassium 5.2 mmol/L (3.4-5.0); Sodium 139 mmol/L (137-145); Triglycerides 89 mg/dL (<150)
[2024-08-14 19:47] LABS: LDL Cholesterol Direct 58 mg/dL
[2024-08-14 21:38] LABS: Hemoglobin A1C 4.9 % (<5.7)
== END 2024-08-14 08:15 | disposition home or self-care (01) ==
LOC: ANHGOSHLAB 08:15
PROVIDERS: PCP Family Medicine; Visit Provider Nurse Practitioner
DX: Z00.00 Encounter for general adult medical examination without abnormal findings (principal); R73.03 Prediabetes; E78.5 Hyperlipidemia, unspecified; Z12.5 Encounter for screening for malignant neoplasm of prostate
CPT/HCPCS: 36415; 80053; 80061; 83036; 84153; 84443; 85027; G0103

== ENCOUNTER 2025-03-05 07:55 | Outpatient (CLI) | payer BC, SELFPAY ==
[2025-03-05 13:04] LABS: Alanine Aminotransferase 20 U/L (6-50); Albumin Level 4.1 g/dL (3.5-5.1); Alkaline Phosphatase 61 U/L (38-126); Anion Gap 8 mmol/L (4-12); Aspartate Amino Transferase 42 U/L (17-59); Bilirubin,Total 0.4 mg/dL (0.2-1.3); Blood Urea Nitrogen 20 mg/dL (9-20); Calcium 8.7 mg/dL (8.4-10.2); Carbon Dioxide 26 mmol/L (22-30); Chloride 103 mmol/L (98-107); Cholesterol 156 mg/dL (0-200); Estimated Glomerular Filt Rate > 60; Glucose 86 mg/dL (65-110); HDL Direct 48 mg/dL; Potassium 4.5 mmol/L (3.4-5.0); Sodium 137 mmol/L (137-145); Total Protein 6.9 g/dL (6.3-8.2); Triglycerides 120 mg/dL (<150)
[2025-03-05 13:18] LABS: Hematocrit 39.1 % (42.0-52.0); Hemoglobin 12.8 g/dL (14.0-18.0); Mean Corpuscular HGB Conc 32.7 g/dl (32-36); Mean Corpuscular Hemoglobin 31.2 pg (26-34); Mean Corpuscular Volume 95.4 fl (80-100); Platelet Count Result 192 k/mm3 (150-375); Red Blood Count 4.10 M/mm3 (4.6-6.20); White Blood Count 5.9 K/mm3 (4.5-10.0)
[2025-03-05 14:54] LABS: Hemoglobin A1C 5.1 % (<5.7)
== END 2025-03-05 07:56 | disposition home or self-care (01) ==
LOC: ANHGOSHLAB 07:55
PROVIDERS: PCP Family Medicine; Visit Provider Nurse Practitioner
DX: R73.03 Prediabetes (principal); E78.5 Hyperlipidemia, unspecified; D64.9 Anemia, unspecified
CPT/HCPCS: 36415; 80053; 80061; 83036; 85027